=== PATIENT | male | born 2000 | race Caucasian/White ===

== ENCOUNTER 2018-10-31 22:54 | Emergency (ER) | payer OTHER ==
[2018-10-31 23:07] VITALS: TEMP 97.8
[2018-11-01 00:09] VITALS: BP 122/61; PULSE 73; RESP 14
[2018-11-01] MEDS ORDERED: DEXAMETHASONE 4 MG TAB PO STA (00:15)
--- NOTE | 2018-11-01 00:18 | ED ---
General Adult HPI - General Chief complaint: Skin/Abscess/Foreign Body Stated complaint: Allergic Reaction BIANKA/Skin Irritation Time Seen by Provider: 11/01/18 00:10 Source: patient Mode of arrival: ambulatory Limitations: no limitations - History of Present Illness Initial comments: Dictation was produced using [employer] dictation software. please excuse any grammatical, word or spelling errors. Chief Complaint: 18-year-old male presents with pruritic erythematous rash. History of Present Illness: Now. He took a nap earlier today. Proximal forearm as ago upon waking up with the from the nap patient noted a severe the EKG and erythematous rash. He states that the rash did not hurt. He went to the pharmacy and took a pill of Benadryl. He states the rash is improved since then. He states the rash is mostly gone. Patient was concerned given to the emergency department. Patient does not know of any food or drug ALLERGIES at this time. Denies any changes in his soap or skin products. The ROS documented in this emergency department record has been reviewed and confirmed by me. Those systems with pertinent positive or negative responses have been documented in the HPI. All other systems are other negative and/or noncontributory. PHYSICAL EXAM: General Impression: Alert and oriented x3, not in acute distress HEENT: Normocephalic atraumatic, extra-ocular movements intact, pupils equal and reactive to light bilaterally, mucous membranes moist. Cardiovascular: Heart regular rate and rhythm, S1&S2 audible, no murmurs, rubs or gallops Chest: Lungs clear to auscultation bilaterally, no rhonchi, no wheeze, no rales Abdomen: Bowel sounds present, abdomen soft, non-tender, non-distended, no organomegaly Musculoskeletal: Pulses present and equal in all extremities, no peripheral edema Motor: Power 5/5 bilaterally, no focal deficits noted Neurological: CN II-XII grossly intact, no focal motor or sensory deficits noted Skin: Mild erythema to the anterior chest Psych: Normal affect and mood ED course: 18-year-old male presents with urticarial rash. All signs upon arrival are within acceptable limits. Patient told of the signs of severe ALLERGIC reaction to seek medical attention if experiences throat swelling, lightheadedness. Vision otherwise told to keep a log of exposures to identify any sort of cause to rash. Patient told to follow up with primary care physician should he experience chronic urticaria. Patient otherwise feels well is given 1 dose of by mouth Decadron. Patient clear for discharge. - Related Data Allergies Allergy/AdvReac Type Severity Reaction Status Date / Time No Known Allergies Allergy Verified 10/31/18 23:07 Review of Systems ROS Statement: Those systems with pertinent positive or pertinent negative responses have been documented in the HPI. ROS Other: All systems not noted in ROS Statement are negative. Past Medical History Past Medical History: No Reported History History of Any Multi-Drug Resistant Organisms: MRSA Date of last positivie culture/infection: 2005 MDRO Source:: right hip Additional Past Surgical History / Comment(s): right hip surgery for MRSA removal, Past Psychological History: No Psychological Hx Reported Smoking Status: Never smoker Past Alcohol Use History: Occasional Past Drug Use History: Marijuana General Exam Limitations: no limitations Course Vital Signs 10/31/18 11/01/18 23:01 00:08 Temperature 97.8 F Pulse Rate 74 73 Respiratory 17 14 Rate Blood Pressure 134/88 122/61 O2 Sat by Pulse 99 99 Oximetry Disposition Clinical Impression: Urticaria Disposition: HOME SELF-CARE Condition: Good Instructions (If sedation given, give patient instructions): Urticaria (ED) Is patient prescribed a controlled substance at d/c from ED?: No Referrals: None,Stated [Primary Care Provider] - 1-2 days Time of Disposition: 00:17
== END 2018-11-01 00:33 | disposition home or self-care (01) ==
LOC: EC 22:54
DX: L50.9 Urticaria, unspecified (principal); Z86.14 Personal history of Methicillin resistant Staphylococcus aureus infection
CPT/HCPCS: 99284; J8540

== ENCOUNTER 2024-03-29 14:54 | Emergency (ER) | payer OTHER ==
[2024-03-29] MEDS ORDERED: AMOXIC-POT CLAV 875-125MG 1 EACH TAB ONE (17:16)
== END 2024-03-29 17:26 | disposition home or self-care (01) ==
LOC: EC 14:54
CPT/HCPCS: 99283

== ENCOUNTER → 2024-12-06 | Outpatient (CLI) | payer OTHER ==
[2024-12-06 15:12] LABS: Basophils # (A) 0.03 X 10*3/uL (0.00-0.10); Basophils % (A) 0.5 %; Eosinophils # (A) 0.14 X 10*3/uL (0.04-0.35); Eosinophils % (A) 2.4 %; HCT 47.8 % (39.6-50.0); HGB 15.9 g/dL (13.0-17.0); Lymphocytes # (A) 1.62 X 10*3/uL (0.90-5.00); Lymphocytes % (A) 27.8 %; MCH 27.8 pg (27.0-32.0); MCHC 33.3 g/dL (32.0-37.0); MCV 83.6 FL (80.0-97.0); Mean Platelet Volume 9.7 FL (9.5-12.2); Monocytes # (A) 0.45 X 10*3/uL (0.20-1.00); Monocytes % (A) 7.7 %; NRBC Per 100 WBC 0 X 10*3/uL (0.00-0.01); Neutrophils # (A) 3.57 X 10*3/uL (1.80-7.70); Neutrophils % (A) 61.3 %; Platelet Count 321 X 10*3/uL (140-440); RBC 5.72 X 10*6/uL (4.40-5.60); RDW 12.4 % (11.5-14.5); WBC 5.83 X 10*3/uL (4.50-10.00)
[2024-12-06 15:40] LABS: ALT 31 U/L (10-49); AST 26 U/L (14-35); Albumin 4.7 g/dL (3.8-4.9); Albumin/Globulin Ratio 1.74 Ratio (1.60-3.17); Alkaline Phosphatase 73 U/L (41-126); Blood Urea Nitrogen 9.9 mg/dL (9.0-27.0); Calcium 9.8 mg/dL (8.7-10.3); Carbon Dioxide 25.2 mmol/L (21.6-31.8); Chloride 104 mmol/L (96-109); Chol/HDL Ratio 4.23 Ratio; Globulin 2.7 g/dL (1.6-3.3); Glucose 90 mg/dL (70-110); Potassium 4.5 mmol/L (3.5-5.5); Sodium 140 mmol/L (135-145); Total Bilirubin 0.7 mg/dL (0.3-1.2); Total Protein 7.4 g/dL (6.2-8.2)
== END | disposition home or self-care (01) ==
LOC: LABWHC1 12:01
PROVIDERS: ATTEND Physician Assistant
DX: Z00.01 Encounter for general adult medical examination with abnormal findings (principal); Z13.220 Encounter for screening for lipoid disorders; Z11.1 Encounter for screening for respiratory tuberculosis; F41.9 Anxiety disorder, unspecified
CPT/HCPCS: 36415; 80053; 80061; 84443; 85025; 86480

== ENCOUNTER → 2024-12-06 | Outpatient (CLI) | payer OTHER ==
--- NOTE | 2024-12-06 15:45 | XR ---
EXAMINATION TYPE: XR lumbosacral spine 5 views, XR Hip Bilateral 2 views each side Complete DATE OF EXAM: 12/06/2024 1:33 PM COMPARISON: None CLINICAL INDICATION: Male, 24 years old with history of R20.2 PARESTHESIA OF SKIN; PHH, pain FINDINGS: Lumbar spine: 5 lumbar type vertebral bodies. No pars interarticularis defect is seen. There is reversal of the nor mal lumbar lordosis. Minimal disc space narrowing suggested throughout. Vertebral body heights are pr eserved and alignment is maintained. Bilateral hips: Some possible minimal degenerative labral ossification superolaterally on both sides. Joint space is maintained. No acute fracture, subluxation, dislocation. IMPRESSION: 1. Lumbar spine: Suspect mild early degenerative disc disease throughout. Reversal of the normal lumb ar lordosis could be positional or due to muscle spasm. No vertebral compression collapse or malalign ment. 2. Bilateral hips: Some possible minimal degenerative labral ossification on either side. Otherwise, no specific radiographic abnormality seen. [facility], , 12/06/2024 3:42 PM
== END | disposition home or self-care (01) ==
LOC: RADXRMAIN 13:01
PROVIDERS: ATTEND Physician Assistant
DX: R20.2 Paresthesia of skin (principal); M54.50 Low back pain, unspecified
CPT/HCPCS: 72110; 73521